=== PATIENT | male | born 1960 | race Caucasian/White ===

== ENCOUNTER → 2017-09-23 | Outpatient (CLI) | payer OTHER ==
[~2017-09-23] MED LIST: IMT100 PO; MULT1CHW18 PO
--- NOTE | 2017-09-23 15:20 | DIAGNOSTIC IMAGING REPORT ---
ABDOMEN FOR HERNIA CLINICAL HISTORY: L INGUINAL HERNIA hernia. Pain. TECHNIQUE: Ultrasound COMPARISON STUDY: None FINDINGS: Normal ultrasonic evaluation of the left inguinal region. No evidence for hernia mass or collection. IMPRESSION: Normal study. No evidence for hernia by ultrasound criteria. The above report was generated using voice recognition software. It may contain grammatical, syntax or spelling errors. Electronically signed by: Juma Izaguirre M.D. 09/23/2017 3:19 PM Dictated Date/Time: 09/23/2017 3:17 PM
== END | disposition home or self-care (01) ==
LOC: C.ULTR 14:35
PROVIDERS: ATTEND Internal Medicine
DX: K40.90 Unilateral inguinal hernia, without obstruction or gangrene, not specified as recurrent (principal)